=== PATIENT | female | born 1970 | race American Indian/Alaskan Native ===

== ENCOUNTER 2018-06-11 06:43 | Day surgery (SDC) | payer OTHER ==
--- NOTE | 2018-06-11 01:24 | History and Physical Report ---
History of Present Illness Date of examination: 06/10/18 Chief complaint: Dysfunctional Uterine Bleeding History of present illness: The patient is a 47-year-old -Maltese female 3 para 2011 who presents for endometrial sampling after failed in office attempt at endometrial biopsy indicated by history of dysfunctional uterine bleeding. Past History Past Medical History: hypertension, blood transfusion, hematologic disorders (anemia), other (Morbid Obesity) Past Surgical History: BIOMEDICAL EQUIPMENT SPECIALIST/uterine surgery (tubal ligation), section, other (bilateral knee replacements, hernia repair) BIOMEDICAL EQUIPMENT SPECIALIST History: fibroids Family/Genetic History: diabetes, hypertension Social history: Medications and Allergies Allergies Allergy/AdvReac Type Severity Reaction Status Date / Time No Known Allergies Allergy Unverified 06/10/18 16:39 Home Medications Medication Instructions Recorded Confirmed Last Taken Type Carvedilol [Coreg] 25 mg PO BID 06/10/18 06/10/18 Unknown History Ferrous Sulfate [Iron 325 MG] 325 mg PO DAILY 06/10/18 06/10/18 Unknown History Multivitamin [Daily Multiple 1 each PO DAILY 06/10/18 06/10/18 Unknown History Vitamin] Review of Systems All systems: negative - Physical Exam Breasts: Positive: deferred Cardiovascular: Regular rate Lungs: Positive: Clear to auscultation Abdomen: Positive: soft (obese) Extremities: Positive: normal Results All other labs normal. Assessment and Plan A: Dysfunctional Uterine Bleeding Morbid Obesity BMI 74 Failed attempt at in office biopsy Hypertension P: Proceed with hysteroscopy, Myosure endometrial sampling and other indicated procedures
[2018-06-11] MEDS ORDERED: ceFAZolin 3 GM in NACL 0.9% 100 ML IV NR (07:00)
[2018-06-11] MEDS ORDERED: LACTATED RINGERS 1,000 ML IV SCH (07:00)
[2018-06-11] MEDS ORDERED: ANCEF/STERILE WATER 2 GM/20 ML 0 GM/0 ML SYRINGE IV ONE (08:00)
[2018-06-11] MEDS ORDERED: SUBLIMAZE IV PRN (08:09)
[2018-06-11] MEDS ORDERED: DEMEROL IV PRN (08:09)
[2018-06-11] MEDS ORDERED: NARCAN 0.4 MG/1 ML IV PRN (08:09)
[2018-06-11] MEDS ORDERED: ZOFRAN IV PRN (08:09)
[2018-06-11] MEDS ORDERED: DILAUDID IV PRN (08:09)
--- NOTE | 2018-06-11 08:16 | Anesthesia Consultation ---
Anesthesia Consult and Med Hx Date of service: 06/11/18 - Airway Anesthetic Teeth Evaluation: Good ROM Head & Neck: Adequate Mental/Hyoid Distance: Adequate Mallampati Class: Class I Intubation Access Assessment: Probably Good - Pulmonary Exam CTA: Yes - Cardiac Exam Cardiac Exam: RRR - Pre-Operative Health Status ASA Pre-Surgery Classification: ASA3 Proposed Anesthetic Plan: General - Pulmonary Hx Smoking: No Hx Asthma: No Hx Sleep Apnea: No - Cardiovascular System Hx Hypertension: Yes (since 05/06/18) Hx Coronary Artery Disease: No Hx Cardia Arrhythmia: No - Central Nervous System Hx Neuromuscular Disorder: No Hx Psychiatric Problems: No - Endocrine Hx Renal Disease: No Hx Liver Disease: No Hx Insulin Dependent Diabetes: No Hx Non-Insulin Dependent Diabetes: No Hx Thyroid Disease: No - Hematic Hx Anemia: Yes - Other Systems Hx Alcohol Use: Yes (Occas) Hx Cancer: No Hx Obesity: Yes (BMI 74.6) - Additional Comments Anesthesia Medical History Comments: No GAC, No FHAC
--- NOTE | 2018-06-11 08:17 | Anesthesia Day of Surgery ---
Anesthesia Day of Surgery - Day of Surgery Patient Examined: Yes Patient H&P Reviewed: Yes Patient is NPO: Yes (1800) Beta Blockers: No Cardiac Clearance: No Pulmonary Clearance: No
[2018-06-11 08:52] LABS: Hematocrit 34.3 % (30.3-42.9); Hemoglobin 11.1 gm/dl (10.1-14.3); Mean Corpuscular HGB Conc 32 % (30-34); Mean Corpuscular Volume 84 fl (79-97); Platelet Count 265 K/mm3 (140-440); Red Blood Count 4.09 M/mm3 (3.65-5.03); Red Cell Distribution Width 17.7 % (13.2-15.2)
[2018-06-11] MEDS ORDERED: DIPRIVAN 10 MG/ML IV ONE ×2 (09:02→09:35)
[2018-06-11] MEDS ORDERED: XYLOCAINE MPF 2% ONE (09:03)
[2018-06-11] MEDS ORDERED: SUBLIMAZE ONE (09:03)
[2018-06-11] MEDS ORDERED: DECADRON ONE (09:42)
[2018-06-11] MEDS ORDERED: ZOFRAN ONE (09:42)
[2018-06-11] MEDS ORDERED: SILVER NITRATE TP ONE ×3 (10:03→10:32)
[2018-06-11] MEDS ORDERED: ROBINUL ONE (10:05)
[2018-06-11] MEDS ORDERED: TORADOL ONE (10:05)
[2018-06-11] MEDS ORDERED: NACL 0.9% IR ONE (10:16)
--- NOTE | 2018-06-11 10:23 | Operative Report ---
Operative Report Operative Report: Date of procedure: June 11, 2018 Preoperative diagnosis: 1) Dysfunctional Uterine Bleeding 2) Morbid Obesity BMI 74 3) Fibroid Uterus Postoperative diagnosis: Same Procedure: 1)Diagnostic Hysteroscopy 2)Myosure Endometrial Sampling Surgeon: Susan Mcpherson M.D. Findings: 1) Small anteverted mobile uterus that sounded to 10 cm with fundal scarring 2) Proliferative endometrium on hysteroscopy Anesthesia: General with LMA Estimated blood loss: Minimal (40 mL ) Specimens: Endometrial curettings to pathology Drains: None Complications: None Disposition: Stable to PACU Indications for procedure: The patient is a 47-year-old -Filip[place] female 3 para 2011 who presents for endometrial sampling after failed in office attempt at endometrial biopsy indicated by history of dysfunctional uterine bleeding and fibroid uterus. Operation in detail: After the risks, benefits, alternatives and complications of the procedure were explained to the patient, she gave informed consent for the procedure. She was subsequently taken to the operating room and placed in the dorsal supine position. SCDs noted to be in place and functioning. General anesthesia was then induced without difficulty. The patient was in placement dorsal lithotomy position and prepped and draped in normal sterile fashion. A timeout was performed. An exam under anesthesia was performed yielding an enlarged anteverted uterus. The bladder was then catheterized and drained of urine. An open sided speculum was then placed into the vagina for adequate visualization of the cervix. The anterior lip of the cervix was then grasped with a tenaculum for traction. The uterus sounded to 10 cm. At this time a hysteroscope was introduced through the cervix to visualize the endometrial cavity which revealed proliferative endometrium and fundal scarring. The Myosure device was used to obtain endometrial curettings which were sent to pathology. Next all instruments were removed from the uterine cavity. At this time, the single-tooth tenaculum was removed from the cervix. Silver nitrate and pressure were placed on the puncture sites to achieve hemostasis. Hemostasis was noted. All instruments were removed from the vagina atraumatically and the procedure was ended. The patient was placed into the dorsal supine position and extubated without difficulty. She was subsequently taken to the PACU in stable condition. She tolerated the procedure well. All counts were correct 2.
--- NOTE | 2018-06-11 10:28 | Short Stay Summary ---
Short Stay Documentation Date of service: 06/11/18 - History H&P: dictated Social history: - Allergies and Medications Current Medications: Allergies No Known Allergies Allergy (Verified 06/11/18 01:23) Home Medications Medication Instructions Recorded Confirmed Last Taken Type Carvedilol [Coreg] 25 mg PO BID 06/10/18 06/11/18 06/11/18 04:30 History Ferrous Sulfate [Iron 325 MG] 325 mg PO DAILY 06/10/18 06/11/18 06/10/18 History Multivitamin [Daily Multiple 1 each PO DAILY 06/10/18 06/11/18 06/09/18 History Vitamin] Active Medications Fentanyl (Sublimaze) 50 mcg IV Q5MIN PRN PRN Reason: Pain , Severe (7-10) Stop: 06/11/18 23:59 Hydromorphone HCl (Dilaudid) 0.5 mg IV Q10MIN PRN PRN Reason: Pain , Severe (7-10) Stop: 06/11/18 23:59 Cefazolin Sodium 3 gm/ Sodium (Chloride) 100 mls @ 100 mls/30 min IV PREOP NR; Protocol Stop: 06/11/18 23:59 Lactated Ringer's (Lactated Ringers) 1,000 mls @ 75 mls/hr IV DIRECT ASHWIN Last Admin: 06/11/18 08:20 Dose: 75 mls/hr Documented by: Meperidine HCl (Demerol) 25 mg IV ONCE PRN PRN Reason: Shivering Stop: 06/11/18 23:59 Naloxone HCl (Narcan 0.4 Mg/1 Ml) 0.1 mg IV Q2MIN PRN PRN Reason: Res Rate </= 8 or 02 SAT < 92% Stop: 06/11/18 23:59 Ondansetron HCl (Zofran) 4 mg IV ONCE PRN PRN Reason: Nausea And Vomiting Stop: 06/11/18 23:59 - Physical exam Breasts: deferred - Brief post op/procedure progress note Date of procedure: 06/11/18 Pre-op diagnosis: Dysfunctional Uterine Bleeding, Morbid Obesity, HTN Post-op diagnosis: same Procedure: 1) Hysteroscopy 2) Myosure endometrial sampling Anesthesia: GETA Findings: 1) 14-16 wk sized uterus 2) Proliferative endometrium with evidence of fundal scarring on hysteroscopy Surgeon: ESTER MCPHERSON Estimated blood loss: minimal (40 mL) Pathology: list (endometrial curettings) Specimen disposition: to lab Condition: stable - Hospital course Hospital course: The patient underwent hysteroscopy and Myosure endometrial sampling which she tolerated well. She was observed and the patch until she met discharge criteria. She'll follow-up in the office in [address] Mcpherson. - Disposition Condition at discharge: Stable Disposition: - TO HOME OR SELFCARE - Discharge Diagnoses (1) Morbid obesity with BMI of 70 and over, adult Status: Acute (2) Dysfunctional uterine bleeding Status: Acute (3) Hypertension Status: Acute Qualifiers: Hypertension type: unspecified Qualified Code(s): I10 - Essential (primary) hypertension Short Stay Discharge Plan Activity: other (Nothing in vagina x 4 wks ) Weight Bearing Status: Full Weight Bearing Diet: regular Follow up with: DIAMANTE SANCHEZ MD [Primary Care Provider] - 7 Days ESTER MCPHERSON MD [Staff Physician] - 06/25/18 (Please call to schedule appt ) Forms: Work/School Release Form Prescriptions: Ibuprofen [Motrin] 800 mg PO Q8HR PRN #30 tablet PRN Reason: Pain, Moderate (4-6) oxyCODONE /ACETAMINOPHEN [Percocet 5/325] 1 tab PO Q6HR PRN #30 tablet PRN Reason: Pain
--- NOTE | 2018-06-11 11:09 | Post Anesthesia Evaluation ---
- Post Anesthesia Evaluation Patient Participated: Yes Airway Patent: Yes Stable Respiratory Function: Yes Nausea/Vomiting: No Temp > 96.8F: Yes Pain Manageable: Yes Adequeate Hydration: Yes Anesthesia Complications: No
[2018-06-11 11:16] VITALS: BP 172/75
== END 2018-06-11 11:55 | disposition home or self-care (01) ==
LOC: OR 06:43
PROVIDERS: ATTEND Obstetrics & Gynecology
DX: D25.9 Leiomyoma of uterus, unspecified (principal); N93.8 Other specified abnormal uterine and vaginal bleeding; N85.8 Other specified noninflammatory disorders of uterus; E66.01 Morbid (severe) obesity due to excess calories; I10 Essential (primary) hypertension; D64.9 Anemia, unspecified; Z96.653 Presence of artificial knee joint, bilateral; Z72.89 Other problems related to lifestyle; Z79.899 Other long term (current) drug therapy; Z68.45 Body mass index [BMI] 70 or greater, adult; Z98.891 History of uterine scar from previous surgery; Z98.890 Other specified postprocedural states
CPT/HCPCS: 36415; 58558; 81025; 85027; 88305; A4217; C1782; J0690; J1100; J1885; J2405; J2704; J3010; J7120

== ENCOUNTER 2020-11-15 08:43 | Day surgery (SDC) | payer OTHER ==
[~2020-11-15 08:43] MED LIST: SODIUM CHLORIDE 0.9% 1000 ML 1,000 ML IV SCH
--- NOTE | 2020-11-15 09:51 | Anesthesia Consultation ---
Anesthesia Consult and Med Hx Date of service: 11/15/20 - Airway Anesthetic Teeth Evaluation: Chipped ROM Head & Neck: Inadequate Mental/Hyoid Distance: Inadequate Mallampati Class: Class II Intubation Access Assessment: Probably Good - Pulmonary Exam CTA: Yes - Pre-Operative Health Status ASA Pre-Surgery Classification: ASA3 Proposed Anesthetic Plan: MAC - Pulmonary Hx Smoking: No Hx Asthma: No SOB: Yes Hx Sleep Apnea: No (Snores; undiagnosed Obstructive sleep apnea- 's report) - Cardiovascular System Hx Hypertension: Yes (since 05/06/18) Hx Coronary Artery Disease: No Hx Heart Attack/AMI: No Hx Cardia Arrhythmia: No - Central Nervous System Hx Neuromuscular Disorder: No Hx Psychiatric Problems: No - Gastrointestinal Hx Gastroesophageal Reflux Disease: No - Endocrine Hx Renal Disease: No Hx Liver Disease: No Hx Insulin Dependent Diabetes: No Hx Non-Insulin Dependent Diabetes: No Hx Thyroid Disease: No - Hematic Hx Anemia: Yes - Other Systems Hx Alcohol Use: Yes (Occasionally) Hx Cancer: No Hx Obesity: Yes (BMI 74.6) - Additional Comments Anesthesia Medical History Comments: Patient denied previous anesthesia complications.
--- NOTE | 2020-11-15 09:54 | Anesthesia Day of Surgery ---
Anesthesia Day of Surgery - Day of Surgery Patient Examined: Yes Patient H&P Reviewed: Yes Patient is NPO: Yes Beta Blockers: No Cardiac Clearance: No Pulmonary Clearance: No
[2020-11-15] MEDS ORDERED: propofoL 200 MG/20 ML VIAL IV ONE ×2 (10:48→10:49)
[2020-11-15] MEDS ORDERED: LIDOCAINE MPF (2%) 20 MG/1 ML VIAL 5 ML ONE (10:48)
--- NOTE | 2020-11-15 11:25 | Short Stay Summary ---
Short Stay Documentation Date of service: 11/15/20 Narrative H&P: The patient presents for her first screening colonoscopy. No FH of colon neoplasia. - History Past Medical History: arthritis, hypertension, hyperlipidemia, other (morbid obesity) Past Surgical History: No surgical history Social history: no significant social history - Allergies and Medications Current Medications: Allergies No Known Allergies Allergy (Verified 06/11/18 01:23) Home Medications Medication Instructions Recorded Confirmed Last Taken Type Ferrous Sulfate [Iron 325 MG] 325 mg PO DAILY 06/10/18 06/11/18 06/10/18 History Multivitamin [Daily Multiple 1 each PO DAILY 06/10/18 06/11/18 06/09/18 History Vitamin] carvediloL [Coreg] 25 mg PO BID 06/10/18 06/11/18 06/11/18 04:30 History Ibuprofen [Motrin] 800 mg PO Q8HR PRN #30 tablet 06/11/18 Unknown Rx oxyCODONE /ACETAMINOPHEN [Percocet 1 tab PO Q6HR PRN #30 tablet 06/11/18 Unknown Rx 5/325] NIFEdipine 11/10/20 Unknown History Active Medications Sodium Chloride (Nacl 0.9% 1000 Ml) 1,000 mls @ 50 mls/hr IV DIRECT ASHWIN - Physical exam General appearance: no acute distress, well-nourished, obese (Morbidly obese) Integumentary: no rash, no growths, no abnormal pigmentation HEENT: Atraumatic, PERRLA, EOMI, Mucous membr. moist/pink Lungs: Clear to auscultation, Normal air movement Breasts: deferred Heart: Regular rate, Normal S1, Normal S2, No murmurs Gastrointestinal: normoactive bowel sounds, no tenderness, no distended, no masses, no guarding, no organomegaly, obese, other (large umbilical hernia, reducible) Female Genitourinary: deferred Rectal Exam: normal exam-external/orifice, no mass Extremities: no ischemia, pulses intact, pulses symmetrical, No edema, normal temperature, normal color, Full ROM Neurological: Normal gait, Normal speech, Strength at 5/5 X4 ext, Normal tone, Sensation intact, Cranial nerves 3-12 NL - Brief post op/procedure progress note Date of procedure: 11/15/20 Findings: see dictation Estimated blood loss: none Pathology: none - Disposition Condition at discharge: Good Disposition: 01 HOME / SELF CARE / HOMELESS - Discharge Diagnoses (1) Colon cancer screening Status: Acute Short Stay Discharge Plan Activity: other (no driving for 24 hours) Weight Bearing Status: Weight Bear as Tolerated Diet: regular Follow up with: PRIMARY CARE, [Primary Care Provider] - 7 Days
--- NOTE | 2020-11-15 11:28 | Operative Report ---
Operative Report Operative Report: Date of procedure: 11/15/2020 Preprocedure diagnosis: Colon cancer screening, no prior studies. Average risk profile Post procedure diagnosis: Normal study to the ileocecal valve. Procedure: Colonoscopy to the ileocecal valve, cecum incompletely seen. Endoscopist: Dr. Machado Anesthesia: Monitored anesthesia care per anesthesia department Estimated blood loss: 0 Medications: Monitored anesthesia care. See separate report by anesthesia for details. After careful discussion of the nature and purpose of the procedure as well as details of the technique risks benefits and alternatives the patient gave consent. Please see recent history and physical from the office. The patient was placed in the left lateral decubitus position and medicated per anesthesia. A rectal exam was performed sphincter tone was normal there were no masses palpable. The [employer] 570 scope was passed transanally and advanced under continuous direct vision with moderate difficulty to the ileocecal valve due to loop formation.. The colon was well prepared. The cecum was partially seen only due to loop formation which could not be overcome with splinting and position change of the patient. The ascending colon was normal. The transverse colon, descending colon, and sigmoid colon were normal. The rectum was normal on forward and retroflexed views. The procedure was well-tolerated overall and the patient was observed in recovery. Conclusions: Normal colonoscopy to the ileocecal valve with a partial view of the cecum. Plan: Consideration of barium enema in the future or earlier colonoscopy in 3 to 5 years. Signed electronically: Lacho Machado M.D.
[2020-11-15 15:59] VITALS: BP 112/52
== END 2020-11-15 08:44 | disposition home or self-care (01) ==
LOC: GIO 08:43
PROVIDERS: ATTEND Internal Medicine Gastroenterology
DX: Z12.11 Encounter for screening for malignant neoplasm of colon (principal); K63.89 Other specified diseases of intestine; I10 Essential (primary) hypertension; E66.01 Morbid (severe) obesity due to excess calories; Z79.899 Other long term (current) drug therapy; Z98.890 Other specified postprocedural states; Z68.44 Body mass index [BMI] 60.0-69.9, adult
CPT/HCPCS: 45378; J2704; J7030